=== PATIENT | male | born 2005 | race Two or more races ===

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

== ENCOUNTER 2025-06-28 16:02 | Emergency (ER) | payer MEDICAID ==
[~2025-06-28] VITALS: Ht 182.9 cm; Wt 109.0 kg
[~2025-06-28 16:02] MED LIST changes: +ONDA-239 PO; -ONDA4TAB11 PO
[2025-06-28 16:05] VITALS: O2SAT 96
[2025-06-28 16:40] LABS: BASOPHILS % 0.4 % (0.0-2.0); EOSINOPHILS % 0.7 % (0.0-5.0); HEMATOCRIT. 41.1 % (42.0-52.0); HEMOGLOBIN. 14.2 g/dL (14.0-18.0); LYMPHOCYTES % 14.0 % (20.0-50.0); MEAN PLATELET VOLUME 7.3 fl (7.4-10.4); MONOCYTES % 5.9 % (2.0-8.0); NEUTROPHILS % 79.0 % (40.0-76.0); PLATELET 307 x1000/uL (130-400); RED BLOOD CELL COUNT 4.60 mill/uL (4.7-6.1); RED CELL DISTRIBUTION WIDTH 13.0 % (11.6-14.6)
[2025-06-28 16:54] LABS: CREATININE 1.1 mg/dL (0.6-1.3); UREA NITROGEN BLOOD 10 mg/dL (9-23)
[2025-06-28 17:40] LABS: CLARITY URINE CLEAR (CLEAR); GLUCOSE URINE TRACE (NEGATIVE); KETONES URINE TRACE (NEGATIVE); LEUKOCYTE ESTERASE URINE NEGATIVE (NEGATIVE); NITRITE URINE NEGATIVE (NEGATIVE); OCCULT BLOOD URINE 1+ (NEGATIVE); PH URINE 6.0 (4.5-8.0); PROTEIN URINE TRACE (NEGATIVE); SPECIFIC GRAVITY URINE 1.019 (1.005-1.030); UROBILINOGEN URINE 0.2 E.U./dL (0.2-1.0)
[2025-06-28 17:47] LABS: *AMPHETAMINES SCREEN URINE NEGATIVE (NEGATIVE); *BARBITURATES SCREEN URINE NEGATIVE (NEGATIVE); *BENZODIAZEPINES SCREEN URINE PRESUMPTIVE POSITIVE (NEGATIVE); *COCAINE SCREEN URINE NEGATIVE (NEGATIVE); METHADONE URINE SCREEN NEGATIVE (NEGATIVE)
[2025-06-28 17:48] LABS: CANNABINOID URINE SCREEN PRESUMPTIVE POSITIVE (NEGATIVE); ECSTASY MDMA SCREEN URINE NEGATIVE (NEGATIVE); OPIATES URINE SCREEN NEGATIVE (NEGATIVE); PHENCYCLIDINE URINE SCREEN NEGATIVE (NEGATIVE)
[2025-06-28 18:14] LABS: COLOR URINE STRAW (YELLOW)
[2025-06-28 18:16] LABS: RBC URINE 0-2 /hpf (0-2); WBC URINE 0-2 /hpf (0-2)
[2025-06-28 18:17] LABS: BACTERIA URINE TRACE; HYALINE CASTS URINE 0-5 /lpf; MUCUS URINE TRACE /lpf (NONE/TRACE); SQUAMOUS EPITHELIAL CELL URINE NONE SEEN /lpf (RARE/1+)
[2025-06-28] MEDS ORDERED: NALO4SPR BOTHNSTRLS (18:18)
[2025-06-28] MEDS ORDERED: IBUP-2028 MT (18:18)
[2025-06-28] MEDS ORDERED: BO1 TP (18:18)
[2025-06-28] MEDS ORDERED: TOPUD PO (18:18)
[2025-06-28] MEDS: IBUPROFEN 400MG TABLET PO ONE (18:21)
[2025-06-28] MEDS: ACETAMINOPHEN 325MG TABLET PO ONE (18:21)
[2025-06-28 18:43] VITALS: BP 125/90; PULSE 89; RESP 18; TEMP 36.8; O2SAT 100
== END 2025-06-28 18:44 | disposition home or self-care (01) ==
LOC: ER 16:02
DX: S93.401A Sprain of unspecified ligament of right ankle, initial encounter (principal); S00.81XA Abrasion of other part of head, initial encounter; T40.411A Poisoning by fentanyl or fentanyl analogs, accidental (unintentional), initial encounter; F41.9 Anxiety disorder, unspecified; Z79.899 Other long term (current) drug therapy; R40.0 Somnolence; Z91.013 Allergy to seafood; W18.49XA Other slipping, tripping and stumbling without falling, initial encounter; Y93.89 Activity, other specified; Y92.89 Other specified places as the place of occurrence of the external cause; Y99.8 Other external cause status
CPT/HCPCS: 99285; 70450; 80305; 80048; 81003; 82962; 85025; 36415; 73610; 93005; A6449